=== PATIENT | female | born 1970 | race Caucasian/White ===

== ENCOUNTER 2023-12-01 08:18 | Outpatient (AMB) | payer OTHER, SELFPAY ==
--- NOTE | 2023-12-01 08:24 | MHC.OFFVIS ---
Vital Signs 12/01/23 08:31 Height 5 ft Weight 136 lb 3 oz BMI 26.6 BP 122/72 Blood Pressure Location Lt brachial Position Sitting Pulse 82 Pulse Source Pulse Oximeter Pulse Oximetry (%) 98 Oxygen Delivery Method Room Air Intake Visit Reasons: LOW BACK PAIN Intake Note: Pain today 02/17 Container Filler Required: No Accompanied by: Self / Same As Patient HPI HPI LOW BACK PAIN: Details: Patient is a 53 years old female with history of anxiety and depression, fibromyalgia, myalgia, low back pain, insomnia, migraines, scoliosis, recent L1 compression fracture, presents today for initial evaluation of low back pain. Patient reports ongoing severe low back pain since fall in 08/08/2023, has been at the top of the steps and was going to grab a railing with her left hand but she had a sudden weakness in her hand and let go and she went flying backwards onto concrete floor, her head hit the snow and her back landed on concrete. Patient was seen at [facility] ER and CT scan lumbar spine showed acute superior endplate fracture at L1. Patient reports she has lumbar spine MRI today at [facility]. Patient also reports widespread diffuse body pain, chronic neck migraines with weakness and unsteadiness for which she uses cane. Back pain is axial, moderate to severe with extension, [id number] with flexion forward, and also radiates to the right lower extremity in no specific dermatome. Pain increases with any movement, especially prolonged sitting, standing, or walking. Patient reports she used the back brace earlier this year and completed physical therapy at [facility] in [place]. She continues with home exercise program but finds it very painful to complete exercises due to pain. Denies previous spine surgery or back injections, but reports multiple injections for her neck, head, Botox for migraines and multiple injections in the past. Patient also sees mental health provider in her symptoms for severe depression anxiety and takes clonazepam, sertraline and trazadone. She takes gabapentin 600 mg QID for fibromyalgia and chronic pain. Pain affects her daily functioning in activities, mood, sleep, social interactions and quality of life. Patient denies any fever, weight loss, abdominal or groin pain, footdrop, bladder or bowel dysfunction or saddle anesthesia. Oswestry low back disability score=43 (completely disabled). Patient is unemployed, on disability. Location: Low back pain, intermittenly to right side and RLE, widespread body pain Duration: Chronic pain for many years worse since breaking back in August Characteristics of symptom or complaint: Stabbing, shooting, spasm, aching, throbbing, tiring, tingling Aggravating or associated factors: Movement, standing, sitting, walking, changing positions Relieving factors: Laying, Tylenol, Ibuprofen, gabapentin 2400 mg, activity modifications Treatment: PT, neck injections, Botox for migraines in the past, uses cane [facility] History (Updated 12/01/23 @ 09:48 by FABRICIO Renner) Depression, endogenous Vitamin D deficiency, unspecified Muscle spasm of back Generalized anxiety disorder Sedative, hypnotic or anxiolytic dependence, uncomplicated Migraine without aura, not intractable, without status migrainosus Low back pain Myalgia Wedge compression fracture of first lumbar vertebra, sequela Fibromyalgia Social History Alcohol intake: current Alcohol intake frequency: holidays/special occasions only Patient Tobacco Use Status: Never used Tobacco Substance Use Type: Marijuana Review of Systems Const All systems reviewed & are unremarkable except as noted in HPI and below Physical Exam Vital Signs: Last Vital Signs Pulse 82 12/01/23 08:31 BP 122/72 12/01/23 08:31 Pulse Ox 98 12/01/23 08:31 Oxygen Delivery Method Room Air 12/01/23 08:31 BMI result Body Mass Index 26.6 General: Appears afebrile. Alert and oriented. Mood and affect appropriate. Follows and participates in conversation appropriately. Respiratory effort is unlabored. No cough. Able to transition from sit to stand unassisted. Uses cane with ambulation. Ambulates with bilaterally normal heel strike and toe off. Reports weakness to RLE. Neck Neck: Yes no lymphadenopathy, Yes supple, No anterior neck swelling, Yes no JVD and No prominent dorsocervical fat pad General: Yes no CVA tenderness Back/Spine/Pelvis Other: Limited lumbar ROM due to pain. Antalgic gait with no limping. Can flex forward to 60-65 degrees and extend to 5-10 degrees before experiencing lumbar pain, worse pain with extension. Demonstrates 5/5 left and 4/5 right strength of quadriceps bilaterally as well as flexion/dorsiflexion of bilateral feet against resistance. 2+ pedal pulses bilaterally. Seated straight leg rise with dorsiflexion negative bilaterally. +2 patellar and achilles reflexes bilaterally. Facet loading test positive bilaterally. Maulik sign, Thomas?s, Pelvic compression and Stinchfield tests are positive bilaterally. No groin pain with I/E hip rotations. Valsalva maneuver negative. Multiple tender points to light palpation 16/16 upper and lower extremities and torso. Back: no CVA tenderness Cervical Spine: cervical ROM normal, cervical muscular tenderness, pain with cervical ROM and No Cervical spine tenderness Thoracic/Lumbar Spine: thoracic and lumbar spine normal to inspection, No Thoracic/lumbar spine scar(s), Lasegue's sign negative, straight leg raise negative bilaterally, pain with thoraco-lumbar ROM, paraspinal muscle tenderness, thoraco-lumbar ROM limited, No thoracic spinal tenderness and lumbar spinal tenderness at L3, at L4 and at L5 Pelvis: no buttock tenderness Sacroiliac joints: bilaterally tender to palpation Extrem General: Yes capillary refill normal, Yes no clubbing, cyanosis or edema and Yes no calf tenderness Results Reviewed Results Reviewed: Per Referral notes, [facility] 08/2023: CT lumbar spine: Acute superior endplate fracture at L1. Assessment & Plan Assessment & Plan (1) Low back pain: Code(s): M54.50 - Low back pain, unspecified Category: Medical (2) Muscle spasm of back: Code(s): M62.830 - Muscle spasm of back Category: Medical (3) Fibromyalgia: Code(s): M79.7 - Fibromyalgia Category: Medical (4) Wedge compression fracture of first lumbar vertebra, sequela: Code(s): S32.010S - Wedge compression fracture of first lumbar vertebra, sequela Category: Medical Plan Patient with mid and lower back pain with radicular symptoms. SLR testing is negative. Patient is undergoing lumnar spine MRI scan today at [facility], we will request results once she competes the test. Discussed kyphoplasty at L1 if acute edema findings in the MRI report. Informational pamphlet provided to patient. Expectations, risks and benefits were reviewed. I have informed patient that our office currently does not offer opioid prescribing. Continue rest, activity modifications, good posture, adequate hydration, home exercise program, Tylenol, NSAIDs, heat/ice complications. Consider CBT and aqua therapy for fibromyalgia. All questions were answered and the patient is in agreement with the treatment plan. Follow up for MRI results and sooner as needed. Coding Level of Care Code New Pt Level 4 (16168) Diagnoses Low back pain M54.50 Muscle spasm of back M62.830 Fibromyalgia M79.7 Wedge compression fracture of first lumbar vertebra, sequela S32.010S
[2023-12-01 08:31] VITALS: BP 122/72; PULSE 82; O2SAT 98; BMI 26.6
== END 2023-12-01 09:11 | disposition home or self-care (01) ==
PROVIDERS: PCP Physician Assistant Medical; Visit Provider Nurse Practitioner Family
DX: M54.50 Low back pain, unspecified (principal); M62.830 Muscle spasm of back; M79.7 Fibromyalgia; S32.010S Wedge compression fracture of first lumbar vertebra, sequela
CPT/HCPCS: 99204

== ENCOUNTER → 2023-12-01 08:18 | Outpatient (BNVA) | payer OTHER, SELFPAY | PROVIDERS: PCP Physician Assistant Medical; Visit Provider Nurse Practitioner Family | DX: M54.50 Low back pain, unspecified (principal); M62.830 Muscle spasm of back; M79.7 Fibromyalgia; S32.010S Wedge compression fracture of first lumbar vertebra, sequela | CPT/HCPCS: 99202 ==